=== PATIENT | female | born 2000 | race Caucasian/White ===

== ENCOUNTER 2018-04-03 15:49 | Emergency (ER) | payer BC ==
[~2018-04-03] VITALS: Ht 160 cm; Wt 52.2 kg
--- NOTE | 2018-04-03 16:05 | NUR ---
MSE DONE BY DR LEUNG IN ROOM 05A.
--- NOTE | 2018-04-03 16:25 | NUR ---
Patient discharged to home in stable conditon. Written and verbal after care instructions given. Patient and mother verbalizes understanding of instructions.
[2018-04-03 16:35] VITALS: BP 103/62
== END 2018-04-03 16:35 | disposition home or self-care (01) ==
LOC: ER 15:51
DX: S80.869A Insect bite (nonvenomous), unspecified lower leg, initial encounter (principal); J45.909 Unspecified asthma, uncomplicated; W57.XXXA Bitten or stung by nonvenomous insect and other nonvenomous arthropods, initial encounter; Y93.89 Activity, other specified; Y92.89 Other specified places as the place of occurrence of the external cause; Y99.8 Other external cause status
CPT/HCPCS: A4663

== ENCOUNTER 2019-09-21 23:24 | Emergency (ER) | payer BC ==
[~2019-09-21] VITALS: Ht 157.5 cm; Wt 53.1 kg
--- NOTE | 2019-09-21 23:39 | NUR ---
DR. HSIEH AT BEDSIDE FOR MSE.
[2019-09-21] MEDS ORDERED: ATROPINE SULFATE 1 MG/10 ML DISP.SYRIN IV ONE (23:45)
[2019-09-21] MEDS ORDERED: IV NORMAL SALINE 1000 ML BAG IV ONE (23:45)
[2019-09-21] MEDS ORDERED: ONDANSETRON 4 MG/2 ML VIAL IV ONE (23:45)
[2019-09-21] MEDS ORDERED: diphenhydrAMINE 50 MG/1 ML VIAL IV ONE (23:45)
[2019-09-21] MEDS ORDERED: diphenhydrAMINE 50 MG/1 ML VIAL ONE (23:54)
[2019-09-21] MEDS ORDERED: ATROPINE SULFATE 1 MG/10 ML DISP.SYRIN ONE (23:54)
[2019-09-21] MEDS ORDERED: ONDANSETRON 4 MG/2 ML VIAL ONE (23:54)
[2019-09-22 01:01] LABS: CREATININE 0.7 mg/dL (0.6-1.3); POTASSIUM 3.4 mmol/L (3.5-5.1)
--- NOTE | 2019-09-22 01:22 | NUR ---
Patient discharged to home in stable conditon. Written and verbal after care instructions given. patient ambulating with steady gait. Patient verbalizes understanding of instructions. IV removed. Catheter intact and site benign. Pressure and 4x4 gauze applied to site. No bleeding noted.
[2019-09-22 01:23] VITALS: BP 105/60
== END 2019-09-22 01:17 | disposition home or self-care (01) ==
LOC: ER 23:25
DX: R11.2 Nausea with vomiting, unspecified (principal); R19.7 Diarrhea, unspecified; R10.84 Generalized abdominal pain; J45.909 Unspecified asthma, uncomplicated; Z88.8 Allergy status to other drugs, medicaments and biological substances
CPT/HCPCS: 36415; 80048; 96361; 96374; 96375; 99283; J0461; J1200; J2405; A4663; J7030